=== PATIENT | male | born 1955 | race Caucasian/White ===

== ENCOUNTER 2019-07-28 15:27 | Emergency (ER) | payer OTHER ==
--- NOTE | 2019-07-29 16:31 | CR ---
CLINICAL DATA: Deep laceration, pain. LEFT FOOT, 28 JULY 2019: No priors. There are osteoarthritic changes involving multiple joints in the foot. There are posterior and plantar calcaneal spurs. No acute abnormalities. No radiodense foreign bodies. Job: [id number] [facility]
--- NOTE | 2019-08-04 08:24 | EDM.PDOC ---
ED HPI GENERAL MEDICAL PROBLEM - General Chief Complaint: Laceration Stated Complaint: CUT LEFT FOOT Time Seen by Provider: 07/28/19 15:38 Source of Information: Reports: Patient History Limitations: Reports: No Limitations - History of Present Illness INITIAL COMMENTS - FREE TEXT/NARRATIVE: This is a 63yo M here for an injury of the left foot. He was injured by an ice auger which sliced through his shoe. He denies any difficulty with movement but a sharp pain when weight bearing a certain way. He denies any other injuries or concerns. Onset: Sudden Location: Reports: Lower Extremity, Left Severity: Moderate Improves with: Reports: None Worsens with: Reports: Movement - Related Data Allergies Allergy/AdvReac Type Severity Reaction Status Date / Time No Known Allergies Allergy Verified 07/28/19 15:35 Home Meds: Home Meds Tamsulosin [Flomax] 0.4 mg PO DAILY 07/28/19 [History] Past Medical History - Past Health History Medical/Surgical History: Denies Medical/Surgical History Review of Systems - Review of Systems Review Of Systems: Comprehensive ROS is negative, except as noted in HPI. ED EXAM, GENERAL - Physical Exam Exam: See Below Exam Limited By: No Limitations General Appearance: Alert, WD/WN, No Apparent Distress Ears: Normal External Exam Throat/Mouth: Normal Inspection Head: Atraumatic, Normocephalic Neck: Normal Inspection Respiratory/Chest: No Respiratory Distress, Lungs Clear Cardiovascular: Normal Peripheral Pulses, Regular Rate, Rhythm Peripheral Pulses: 2+: Dorsalis Pedis (L), Dorsalis Pedis (R) Neurological: Alert, Oriented Psychiatric: Normal Affect, Normal Mood Skin Exam: Wound/Incision ED TRAUMA EXTREMITY PROCEDURES - Laceration/Wound Repair Left Medial Foot Lac/Wound Length In cm: 3.5 Appearance: Linear, Clean Distal NVT: Neuro & Vascular Intact Anesthetic Type: Local Local Anesthesia - Lidocaine (Xylocaine): 1% Plain Local Anesthetic Volume: 5cc Skin Prep: Providone-Iodine (Betadine) Exploration/Debridement/Repair: Wound Explored, No Foreign Material Found Closed With: Sutures Suture Size: 4-0 # of Sutures: 9 Suture Type: Interrupted, Simple Tetanus Status Addressed: Yes Complications: No Course - Vital Signs Last Recorded V/S: Last Vital Signs Temp 36.1 C 07/28/19 16:13 Pulse 104 H 07/28/19 16:13 Resp 16 07/28/19 16:13 BP 150/101 H 07/28/19 16:13 Pulse Ox 100 07/28/19 16:13 Departure - Departure Time of Disposition: 15:30 Disposition: Home, Self-Care 01 Condition: Good Clinical Impression: Bone injury, Laceration - Discharge Information Instructions: Laceration Care, Adult Referrals: PCP,None [Primary Care Provider] - Forms: ED Department Discharge Care Plan Goals: Keep incision clean and dry. Can pat clean but not soak. No shower x 2 weeks. Have sutures removed in 7 to 10 days. Can take motrin 600 mg every 6 hours and tylenol 650 every 6 hours. You may alternate - take tylenol, 3 hours later take motrin and continue to alternated as needed. Wear boot x 3 to 4 weeks and keep weight off of foot. Use crutches. If you try without boot at 2 or 3 weeks and you still have pain. Put it back on. Sepsis Event Note - Evaluation Sepsis Screening Result: No Definite Risk - Focused Exam Date Exam was Performed: 08/04/19 Time Exam was Performed: 08:24 - Problem List & Annotations (1) Bone injury SNOMED Code(s): 070714606 Code(s): T14.90XA - INJURY, UNSPECIFIED, INITIAL ENCOUNTER Status: Acute (2) Laceration SNOMED Code(s): 933201509 Code(s): RXD8674 - Status: Acute - Problem List Review Problem List Initiated/Reviewed/Updated: Yes - Assessment/Plan Plan: Counseled on left foot care and management. Discussed sutures and f/u removal. Discussed continued f/u with PCP and use of a walking boot due to bone contusion /chip. Counseled on monitoring for infection and management.
== END 2019-07-28 17:50 | disposition home or self-care (01) ==
LOC: LB.ED 15:27
DX: S91.312A Laceration without foreign body, left foot, initial encounter (principal); T14.90XA Injury, unspecified, initial encounter; W29.8XXA Contact with other powered hand tools and household machinery, initial encounter; Y93.89 Activity, other specified
CPT/HCPCS: 12002; 73620-LT; 99283-25